=== PATIENT | male | born 1960 | race American Indian/Alaskan Native ===

== ENCOUNTER 2021-10-28 09:57 | Outpatient (CLI) | payer OTHER ==
--- NOTE | 2021-10-28 13:57 | Cat Scan Report ---
CT CHEST WITHOUT CONTRAST INDICATION / CLINICAL INFORMATION: ABNORMAL CHEST XRAY,SOB. TECHNIQUE: Axial CT images were obtained through the chest without contrast. All CT scans at this location are p erformed using CT dose reduction for ALARA by means of automated exposure control. COMPARISON: None available. FINDINGS: THORACIC AORTA: Mild atherosclerotic calcification without acute abnormality. CORONARY ARTERY CALCIFICATION: Mild coronary artery calcifications. HEART: Mild cardiac enlargement. No significant pericardial effusion. MEDIASTINUM / ELICEO: Enlarged soft tissue nodules/lymph nodes in the anterior mediastinum, largest sylvia suring 2.1 x 3.4 cm (series 2 image 54). No other adenopathy in the mediastinum. No paratracheal or s ubcarinal lymphadenopathy. No discrete hilar adenopathy given limitations of this noncontrast study. LUNGS/PLEURA: No acute airspace disease. No suspicious nodules. No pleural effusion or pneumothorax. ADDITIONAL CHEST FINDINGS: None. UPPER ABDOMEN: Partially imaged 3.7 cm hyperdense right renal lesion. Small bilobar hepatic cysts are present. There is a incompletely characterized 3.9 cm cystic structure in the spleen, likely reflect ing cyst or pseudocyst. Recommend continued attention on follow-up. SKELETAL SYSTEM: Sternotomy changes. No acute osseous findings. IMPRESSION: 1. Multiple soft tissue nodules in the anterior mediastinum, likely representing lymphadenopathy. Mal ignancy is the diagnosis of exclusion. This could reflect metastatic disease or lymphoma. 2. Incompletely characterized right renal lesion. This could reflect a hyperdense cyst, though follow -up with multiphasic CT or MRI is recommended. 3. Other incidental findings as above. Signer Name: Thaddeus Juarez MD Signed: 10/28/2021 1:53 PM Workstation Name: [id number]
== END 2021-10-28 09:58 | disposition home or self-care (01) ==
LOC: CT 09:57
PROVIDERS: ATTEND Internal Medicine Critical Care Medicine
DX: R91.1 Solitary pulmonary nodule (principal); I25.10 Atherosclerotic heart disease of native coronary artery without angina pectoris; I70.0 Atherosclerosis of aorta; K76.89 Other specified diseases of liver; R59.0 Localized enlarged lymph nodes; R91.8 Other nonspecific abnormal finding of lung field
CPT/HCPCS: 71250